=== PATIENT | female | born 1995 | race Caucasian/White ===

== ENCOUNTER → 2017-12-13 | Outpatient (CLI) | payer BC ==
[2017-12-13 13:58] LABS: BASO % 0.3 % (0.0-1.0); EOS # 0.1 10^3/uL (0.0-0.50); EOS % 1.1 % (0.0-3.0); HEMATOCRIT 39.3 % (36.0-47.0); HEMOGLOBIN 13.7 g/dl (12.0-16.0); IMMATURE GRANULOCYTE # 0.1 10^3/uL (0-0); IMMATURE GRANULOCYTE % 0.5 % (0-0); LYMPH % 17.2 % (24.0-44.0); MEAN CORPUSCULAR HEMOGLOBIN 31.2 pg (27.0-33.0); MEAN CORPUSCULAR HGB CONC 34.9 g/dl (32.0-36.5); MEAN CORPUSCULAR VOLUME 89.5 fl (80.0-96.0); MONO # 1.1 10^3/uL (0.0-0.8); MONO % 9.5 % (0.0-5.0); NEUTROPHILS # 8.3 10^3/uL (1.8-7.7); NEUTROPHILS % 71.4 % (36.0-66.0); PLATELET COUNT, AUTOMATED 328 10^3/uL (150-450); RED BLOOD COUNT 4.39 10^6/uL (4.00-5.40); RED CELL DISTRIBUTION WIDTH 12.4 % (11.5-14.5); WHITE BLOOD COUNT 11.6 10^3/uL (4.0-10.0)
[2017-12-13 14:57] LABS: RUBELLA IgG QUALITATIVE IMMUNE (IMMUNE)
[2017-12-13 15:05] LABS: HBsAg Prenatal NEGATIVE (NEGATIVE)
[2017-12-13 15:26] LABS: HIV 1&2 SCREEN CENTAUR NEGATIVE (NEGATIVE)
[2017-12-13 15:31] LABS: HEPATITIS C VIRUS ABY INDEX 3.5 INDEX (<0.8)
[2017-12-13 16:16] LABS: CHLAMYDIA DNA AMPLIFICATION NEGATIVE (NEGATIVE); GC DNA AMPLIFICATION NEGATIVE (NEGATIVE)
[2017-12-16 08:07] LABS: HCV RNA NAA QUALITATIVE Negative (Negative)
== END ==
LOC: M SMT 11:00
DX: Z34.81 Encounter for supervision of other normal pregnancy, first trimester (principal)
CPT/HCPCS: 86762

== ENCOUNTER → 2018-02-27 | Outpatient (CLI) | payer BC, OTHER | LOC: M RAD 09:58 | DX: Z34.82 Encounter for supervision of other normal pregnancy, second trimester (principal); Z3A.19 19 weeks gestation of pregnancy | CPT/HCPCS: 76811 ==

== ENCOUNTER → 2018-05-22 | Outpatient (CLI) | payer BC, OTHER ==
[2018-05-25 09:05] LABS: HERPES ZOSTER, VARICELLA IgM <0.91 index (0.00-0.90)
[2018-05-25 09:05] LABS: HERPES ZOSTER, VARICELLA IgG 1400 index (Immune >165)
== END ==
LOC: M LAB 19:50
DX: Z34.83 Encounter for supervision of other normal pregnancy, third trimester (principal); Z3A.00 Weeks of gestation of pregnancy not specified
CPT/HCPCS: 86787

== ENCOUNTER → 2018-06-26 | Outpatient (REF) | payer OTHER ==
[2018-06-26 14:32] LABS: TOTAL PROTEIN,RANDOM URINE < 5.0 MG/DL (0.0-12.0)
[2018-06-26 14:32] LABS: CREATININE,RANDOM URINE < 13.0 MG/DL
== END ==
LOC: M LAB REF 13:06
DX: Z34.83 Encounter for supervision of other normal pregnancy, third trimester (principal); Z36.89 Encounter for other specified antenatal screening
CPT/HCPCS: 82570

== ENCOUNTER 2018-07-16 14:42 | Inpatient (IN) | payer BC, OTHER ==
[2018-07-16 16:18] LABS: HEMATOCRIT 37.3 % (36.0-47.0); HEMOGLOBIN 13.2 g/dl (12.0-15.5); MEAN CORPUSCULAR HEMOGLOBIN 31.9 pg (27.0-33.0); MEAN CORPUSCULAR HGB CONC 35.4 g/dl (32.0-36.5); MEAN CORPUSCULAR VOLUME 90.1 fl (80.0-96.0); PLATELET COUNT, AUTOMATED 256 10^3/uL (150-450); RED BLOOD COUNT 4.14 10^6/uL (4.00-5.40); RED CELL DISTRIBUTION WIDTH 12.7 % (11.5-14.5); WHITE BLOOD COUNT 12.8 10^3/uL (4.0-10.0)
[2018-07-16] MEDS: miSOPROStol 50 MCG 1/2 TAB (S0191) PO (16:20)
[2018-07-16 16:43] LABS: ALT/SGPT 24 U/L (12-78); AST/SGOT 24 U/L (7-37); BILIRUBIN,TOTAL 0.2 MG/DL (0.2-1.0); CREATININE FOR GFR 0.56 MG/DL (0.55-1.30); GLOMERULAR FILTRATION RATE > 60.0 (>60); LDH LACTATE DEHYDROGENASE 230 U/L (84-246); URIC ACID 4.1 MG/DL (2.6-6.0)
[2018-07-16] MEDS ORDERED: FENTANYL 2MCG/ML ROPIVACAINE 0.2% IN 0.9% NACL 200ML IVBAG As Ordered (22:52)
[2018-07-16] MEDS ORDERED: LACTATED RINGER'S 1000 ML IV (23:45)
[2018-07-16] MEDS ORDERED: FENTANYL/ROPIVACAINE/NACL BAG 200 ML EPIDURAL (23:45)
[2018-07-16] MEDS ORDERED: ONDANSETRON 4MG/2ML VIAL (J2405) IV (23:45)
[2018-07-16] MEDS ORDERED: EPIDURAL COMMENT XX (23:45)
[2018-07-16] MEDS ORDERED: REFRIGERATOR IV KEYS XX (23:45)
[2018-07-16] MEDS ORDERED: NALOXONE INJ 0.4 MG/1 ML VIAL (J2310) IV (23:45)
[2018-07-16] MEDS ORDERED: diphenhydrAMINE INJ 50MG/ML VIAL (J1200) IV (23:45)
[2018-07-16] MEDS ORDERED: EPIDURAL/PCA KEYS XX (23:45)
[2018-07-17] MEDS: ePHEDrine SULFATE 25 MG/5 ML(5MG/ML) SYRINGE IV (01:28)
[2018-07-17] MEDS: OXYTOCIN DRIP 30 UNITS in APPROPRIATE DILUENT 1 EA IV ×2 (01:33→03:59)
[2018-07-17] MEDS ORDERED: RHOGAM 300 MCG (1500 IU) INJ (J2790) IM (04:00)
[2018-07-17] MEDS ORDERED: PROMETHAZINE 25 MG TAB PO (04:00)
[2018-07-17] MEDS ORDERED: MOM 30ML SUSPENSION UDC PO (04:00)
[2018-07-17] MEDS ORDERED: ONDANSETRON 4MG/2ML VIAL (J2405) IV (04:00)
[2018-07-17] MEDS ORDERED: DIBUCAINE 1% OINTMENT 30GM TOP (04:00)
[2018-07-17] MEDS ORDERED: ANUSOL HC CREAM 30GM TOP (04:00)
[2018-07-17] MEDS ORDERED: ACETAMINOPHEN 500 MG TAB PO (04:00)
[2018-07-17] MEDS ORDERED: MEASLES,MUMPS,RUBELLA VACCINE INJ (MMR-II) (90707) SC (04:00)
[2018-07-17] MEDS ORDERED: METHYLERGONOVINE MALEATE 0.2 MG TAB PO (04:00)
[2018-07-17] MEDS: PRENATAL VITAMINS CHEWABLE TABLET PO (08:46)
[2018-07-17] MEDS: DOCUSATE SODIUM 100 MG CAP PO (20:50)
[2018-07-17] MEDS: IBUPROFEN 800 MG TAB PO (22:06)
[2018-07-18] MEDS: PRENATAL VITAMINS CHEWABLE TABLET PO (09:48)
[2018-07-18] MEDS: DOCUSATE SODIUM 100 MG CAP PO (21:18)
[2018-07-19] MEDS: PRENATAL VITAMINS CHEWABLE TABLET PO (08:56)
== END 2018-07-19 11:00 | disposition home or self-care (01) | DRG 560 ==
LOC: M LDI 14:42 → M OBS 07-17 05:52
PROC: 10E0XZZ Delivery of Products of Conception, External Approach (ICD-10-PCS; principal; 2018-07-17)
DX: O42.02 Full-term premature rupture of membranes, onset of labor within 24 hours of rupture (principal); Z37.0 Single live birth; Z3A.39 39 weeks gestation of pregnancy

== ENCOUNTER → 2019-08-21 | Outpatient (CLI) | payer BC, OTHER ==
[~2019-08-21] MED LIST: IBUP-1114 PO; MAPA500T2 PO; PREN1TAB11 PO
[2019-08-21 17:25] LABS: BASO % 0.3 % (0.0-1.0); EOS # 0.2 10^3/uL (0.0-0.5); HEMATOCRIT 38.7 % (36.0-47.0); HEMOGLOBIN 13.1 g/dl (12.0-15.5); LYMPH # 2.4 10^3/uL (1.5-5.0); LYMPH % 22.3 % (24.0-44.0); MEAN CORPUSCULAR HEMOGLOBIN 30.3 pg (27.0-33.0); MEAN CORPUSCULAR HGB CONC 33.9 g/dl (32.0-36.5); MEAN CORPUSCULAR VOLUME 89.6 fl (80.0-96.0); MONO # 0.9 10^3/uL (0.0-0.8); MONO % 8.9 % (0.0-5.0); NEUTROPHILS % 66.1 % (36.0-66.0); PLATELET COUNT, AUTOMATED 360 10^3/uL (150-450); RED BLOOD COUNT 4.32 10^6/uL (4.00-5.40); WHITE BLOOD COUNT 10.5 10^3/uL (4.0-10.0)
[2019-08-24 10:58] LABS: HEPATITIS C VIRUS ABY INDEX 0.1 INDEX (<0.8); HIV 1&2 SCREEN CENTAUR NEGATIVE (NEGATIVE); RUBELLA IgG QUALITATIVE IMMUNE (IMMUNE)
[2019-08-24 14:40] LABS: CHLAMYDIA DNA AMPLIFICATION NEGATIVE (NEGATIVE); GC DNA AMPLIFICATION NEGATIVE (NEGATIVE)
== END ==
LOC: M SMT 15:24
PROVIDERS: ATTEND Advanced Practice Midwife
DX: Z34.80 Encounter for supervision of other normal pregnancy, unspecified trimester (principal)

== ENCOUNTER → 2019-11-12 | Outpatient (CLI) | payer BC, OTHER ==
--- NOTE | 2019-11-12 17:06 | REP ---
Clinical: Anatomical evaluation. Comparison: None. Findings: Examination demonstrates a single live intrauterine in variable presentation. motion is identified by technologist. Placenta is noted anterior and grade zero without evidence for placenta previa or abruption. Amniotic fluid volume is normal. Cervix measures 4.6 cm in length and appears closed. Nuchal cord cannot be excluded. Gestational age by LMP 20 weeks 0 days with KAREY 03/31/2020 . Gestational age by current measurements 21 weeks 2-day with KAREY 03/22/2020 . FHR equals 157 beats per minute. BPD 4.9 cm 20 weeks 5 days HC 18.1 cm 20 weeks 3 days AC 17.1 cm 22 weeks 1 day FL 3.6 cm 21 weeks 3 days HL 3.5 cm 22 weeks 0 days HC/AC ratio 1.06 Estimated weight 438 grams (greater than 97 percentile based on age by LMP) the Anatomical assessment demonstrates normal structures including cranium, choroid plexus, cavum, cerebellum/posterior fossa, facial features, lungs, diaphragm, stomach, cord insertion/three-vessel cord, kidneys/bladder, spine, and extremities. Impression: 1. Single live intrauterine in variable presentation. Estimated weight is greater than expected based on age by LMP and correlation is recommended. 2. Limited evaluation of the heart and cardiac ventricular outflow tracts may warrant reevaluation and follow-up. Electronically Signed by Willie Cagle MD 11/12/2019 04:57 P
== END ==
LOC: M RAD 15:46
PROVIDERS: ATTEND Obstetrics & Gynecology
DX: Z34.82 Encounter for supervision of other normal pregnancy, second trimester (principal)

== ENCOUNTER → 2019-12-01 | Outpatient (CLI) | payer BC, OTHER ==
--- NOTE | 2019-12-02 03:34 | REP ---
Clinical: Anatomical evaluation. Comparison: 11/12/2019 . Findings: Examination demonstrates a single live intrauterine in cephalic presentation. motion is identified by technologist. Placenta is noted anterior and grade one without evidence for placenta previa or abruption. Amniotic fluid volume is normal. Cervix measures 4.4 cm in length and appears closed. No evidence for nuchal cord. Gestational age by LMP 22 weeks 5 days with KAREY 03/31/2020 . Gestational age by current measurements 23 weeks 3 days with KAREY 03/26/2020 . FHR equals 144 beats per minute. Estimated weight 599 grams ( 70th percentile). Anatomical assessment demonstrates normal structures including cranium, choroid plexus, cavum, cerebellum/posterior fossa, facial features, lungs, four-chamber heart/ventricular outflow tracts, diaphragm, stomach, cord insertion/three-vessel cord, kidneys/bladder, spine, and extremities. Echogenic focus again noted on the left cardiac ventricle likely prominent chordae tendineae. Impression: Single live intrauterine in cephalic presentation demonstrating appropriate interval growth. Anatomical assessment is complete and relatively normal as described above. Electronically Signed by Willie Cagle MD 12/02/2019 03:25 A
== END ==
LOC: M RAD 15:34
PROVIDERS: ATTEND Advanced Practice Midwife
DX: Z34.92 Encounter for supervision of normal pregnancy, unspecified, second trimester (principal)

== ENCOUNTER → 2020-01-19 | Outpatient (CLI) | payer BC, OTHER ==
--- NOTE | 2020-01-20 08:08 | REP ---
Clinical: Growth evaluation. Comparison: 12/01/2019 . Findings: Examination demonstrates a single live intrauterine in cephalic presentation. motion is identified by technologist. Placenta is noted anterior and grade I without evidence for placenta previa or abruption. Amniotic fluid volume is normal. Cervix measures 4.8 cm in length and appears closed. Nuchal cord noted. Gestational age by LMP 29 weeks 5 days with KAREY 03/31/2020 . Gestational age by first ultrasound and current measurements 31 weeks 0 day with KAREY 03/22/2020 . FHR equals 136 beats per minute. BPD 7.9 cm 31 weeks 5 days HC 29.0 cm 32 weeks 0 days AC 27.8 cm 31 weeks 6-day FL 5.7 cm 29 weeks 5-day HL 5.1 cm 29 weeks 4 days HC/AC ratio 1.04 Estimated weight 1780 grams (77 percentile). Amniotic fluid index: 11.8 cm Umbilical cord SD ratio: 2.82 Impression: 1. Single live intrauterine in cephalic presentation demonstrating appropriate interval growth. 2. Nuchal cord noted. Electronically Signed by Willie Cagle MD 01/20/2020 08:00 A
== END ==
LOC: M RAD 15:47
PROVIDERS: ATTEND Advanced Practice Midwife
DX: O26.849 Uterine size-date discrepancy, unspecified trimester (principal); Z3A.29 29 weeks gestation of pregnancy

== ENCOUNTER → 2020-03-07 | Outpatient (REF) | payer OTHER | LOC: M SFHCWAGY 16:31 | PROVIDERS: ATTEND Obstetrics & Gynecology | DX: Z3A.36 36 weeks gestation of pregnancy (principal) ==

== ENCOUNTER 2020-03-29 03:45 | Inpatient (IN) | payer BC, OTHER ==
[2020-03-29] VITALS (32 sets, daily range): BP systolic 86–147; BP diastolic 50–84
[~2020-03-29] VITALS: Ht 165.1 cm; Wt 90.1 kg
[2020-03-29] MEDS ORDERED: LR 1,000 ML IV SCH (04:27)
[2020-03-29] MEDS ORDERED: LACTATED RINGER'S 1000 ML IV STA (04:27)
[2020-03-29] MEDS ORDERED: ONDANSETRON 4MG/2ML VIAL IV ONE (04:30)
[2020-03-29 04:57] LABS: HEMATOCRIT 37.2 % (36.0-47.0); HEMOGLOBIN 13.2 g/dl (12.0-15.5); MEAN CORPUSCULAR HEMOGLOBIN 31.6 pg (27.0-33.0); MEAN CORPUSCULAR HGB CONC 35.5 g/dl (32.0-36.5); PLATELET COUNT, AUTOMATED 237 10^3/uL (150-450); RED BLOOD COUNT 4.18 10^6/uL (4.00-5.40); WHITE BLOOD COUNT 19.9 10^3/uL (4.0-10.0)
[2020-03-29] MEDS ORDERED: FENTANYL 2MCG/ML ROPIVACAINE 0.2% IN 0.9% NACL 100ML IVBAG As Ordered ONE (05:05)
[2020-03-29] MEDS ORDERED: EPIDURAL/PCA KEYS XX PRN (06:30)
[2020-03-29] MEDS ORDERED: ONDANSETRON 4MG/2ML VIAL IV PRN (06:30)
[2020-03-29] MEDS ORDERED: diphenhydrAMINE 50MG/ML VIAL (J1200) IV PRN (06:30)
[2020-03-29] MEDS ORDERED: NALOXONE INJ 0.4MG/1ML VIAL (J2310 PER 1MG) IV PRN (06:30)
[2020-03-29] MEDS ORDERED: REFRIGERATOR IV KEYS XX PRN (06:30)
[2020-03-29] MEDS ORDERED: LACTATED RINGER'S 1000 ML IV PRN (06:30)
[2020-03-29] MEDS ORDERED: EPIDURAL COMMENT XX SCH (06:30)
[2020-03-29] MEDS ORDERED: FENTANYL/ROPIVACAINE/NACL BAG 100 ML EPIDURAL SCH (06:30)
--- NOTE | 2020-03-29 06:55 | HPEPDOC ---
Obstetrical History & Physical General Date of Admission March 29, 2020 at 04:24 Primary Care Physician: ESTEPHANIA GOLDSMITH CNM History of Present Illness Patient is a 25-year-old female who is a at 39.5 weeks gestation with an KAREY of 03/31/20 based off of her LMP and consistent with her first trimester ultrasound. She initiated care with [facility] in her first trimester. Her has essentially been uncomplicated beyond having a few slightly elevated BPs at her last 2 visits consistent with GHTN. She presented to L&D in active labor. She reports painful, regular contractions, bloody show, and active movement. She denied leaking of fluid but about 1 hour after arriving to hospital she experienced SROM of clear fluids. Chief Complaint: Active Labor Information Provided By: Patient Age: 25 : 2 Term: 1 Pre-term: 0 Abortions: 0 Livin Care Care: Good Care Dating Final EDC: March 31, 2020 Final EDC by: LMP LMP: Jun 25, 2019 EGA at Admission: 39.5 Antepartum Course Height (inches): 65 Pre- weight (lbs.): 142 Admission Weight (lbs.): 198 Change in Weight (lbs.): 56 Past Medical History Past Obstetrical History : Date of Delivery: Jul 27, 2018 Gestation: 39 Type of Delivery: Spontaneous Vaginal Del. Sex of : Male (weight: 7 lbs 7 oz.) Complications: No MESH MAN History: No pertinent history Past Medical History Medical History no current conditions Surgical History: Tonsilectomy (with adenoidectomy) Family History Significant Family History: Heart disease, Hypertension, Vascular disease Social History Marital Status: Family situation: Spouse/partner home Psychosocial History: No pertinent psych hx * Smoker: non-smoker Alcohol: Denies Drugs: denies Abuse Violence Screening Have you been hit/kicked/slapp: No Have you been sexually assault: No Allergies Coded Allergies: Sulfa (Sulfonamide Antibiotics) (Verified Allergy, Unknown, 03/29/20) Medications Scheduled Vit No.124/Iron/Folic ( Vitamin Tablet) 1 Tab Tab, 1 TAB PO DAILY Physical Examination Physical Examination GENERAL: Alert and oriented times three. BREAST: . ABDOMEN: Gravid and non-tender to touch. FETUS: Is vertex (VTX) by sterile vaginal examination (SVE), fetus is vertex (VTX) by Jhonatan. HEART RATE: Regular rate and rhythm. LUNGS: Clear to auscultation (CTA). EXTREMITIES: No edema. No clonus. Deep tendon reflexes (DTRs) + . Vital Signs/I&O Vital Signs Date Time Temp Pulse Resp B/P (MAP) Pulse Ox O2 Delivery O2 Flow Rate FiO2 03/29/20 06:32 97.7 86 100/58 (72) Laboratory Data 24H LABS Laboratory Tests 2 03/29/20 04:35: Serology Scanned Report Hepatitis B Testing 03/29/20 04:51: Nucleated Red Blood Cells % (auto) 0.0 CBC/BMP Laboratory Tests 03/29/20 04:51 Urine Culture: No Growth Pertinent Laboratoy Data Blood Type: O+ RBC Antibody Screen: Negative HIV: Negative Hepatitis B: Negative Hepatitis C: Negative Rapid Plasma Reagin: Nonreactive Rubella: Immune Chlamydia/Gonorrhea: Negative Group B Streptococcus: Negative Glucose Tolerance Test: 130 Vaginal Examination Dilation: 3 cm Effacement: 90% Station: -2 Cervical Consistency: Soft Cervical Position: Anterior Presentation: Cephalic presentation Position: Vertex (occiput) Assessment Heart Rate (FHR): 130 Variability: Moderate Accelerations: Positive Decelerations: None Tocometer Contractions: Yes Frequency: regular Multi-drug resistant Organism: No history of MDRO Assessment/Plan Assessment IUP at 39.5 weeks gestation GBS negative Category I FHR tracing Active labor Plan Admit to L&D. OOB ad joseph until epidural. Diet: clears. Group B Streptococcus (GBS) negative. Labs and intravenous (IV) per unit protocol. Anesthesia consult per patient's request. Lactated Ringers (LR): Bolus 800 mL, then at 125 mL/hr. Anticipate cervical change and . C-S as appropriate. ESTEPHANIA GOLDSMITH CNM March 29, 2020 06:55
[2020-03-29] MEDS: ePHEDrine SULFATE 25 MG/5 ML(5MG/ML) SYRINGE IV PRN ×3 (07:37→07:50)
[2020-03-29] MEDS ORDERED: OXYTOCIN 30 UNITS IN 0.9% NaCl 500ML IV BAG (J2590) As Ordered ONE (09:34)
[2020-03-29] MEDS ORDERED: OXYTOCIN DRIP 30 UNITS in IV 1 EA IV SCH (10:26)
[2020-03-29] MEDS ORDERED: DIBUCAINE 1% OINTMENT 30GM TOP PRN (10:30)
[2020-03-29] MEDS ORDERED: IBUPROFEN 800 MG TAB PO PRN (10:30)
[2020-03-29] MEDS ORDERED: RHOGAM 300 MCG (1500 IU) INJ (J2790) IM SCH (10:30)
[2020-03-29] MEDS ORDERED: MEASLES,MUMPS,RUBELLA VACCINE INJ (MMR-II) (90707) SC SCH (10:30)
[2020-03-29] MEDS ORDERED: METHYLERGONOVINE MALEATE 0.2 MG TAB PO PRN (10:30)
[2020-03-29] MEDS ORDERED: ACETAMINOPHEN TAB 650MG DOSE (2X325MG) PO PRN (10:30)
[2020-03-29] MEDS ORDERED: DOCUSATE SODIUM 100MG CAPSULE PO PRN (10:30)
[2020-03-29] MEDS ORDERED: ACETAMINOPHEN 500 MG TAB PO PRN (10:30)
--- NOTE | 2020-03-29 10:39 | DNPDOC ---
[facility] Delivery Note Delivery Note DATE OF DELIVERY: 03/29/2020 PREDELIVERY DIAGNOSIS: 39-3/7 weeks' gestation and labor. POST DELIVERY DIAGNOSIS: Delivered. PROCEDURE: Spontaneous vaginal delivery. OPERATIONS SUPPORT REPRESENTATIVE: Dr. Zonia Holly DO, PGY 3 SCRUB NURSE: Dr. Afsaneh Monahan M.D. ANESTHESIA: Epidural. ESTIMATED BLOOD LOSS: 100 mL. FINDINGS: 8 pound 0 ounce male infant, Score 9/9, left compound hand. DELIVERY SUMMARY: The active phase and second stage of labor progressed in normal fashion with epidural anesthesia. Patient did not receive Pitocin labor augmentation. GBS negative. Cat I FHR throughout labor. The head delivered straight occiput anterior and restituted right occiput transverse. A left compound hand was noted. The anterior shoulder delivered with gentle downward guidance and the remainder of the body delivered with ease. Cord clamping was delayed until pulsations ceased. After doubly clamping the cord, the FOB cut the umbilical cord under my direct supervision. The was placed on the mother's chest for immediate bonding. [place] data: Apgars 9 and 9. weight 3640 grams 8 pounds, 0 ounces. Time of delivery: 1002. Sex: Male. Name: Henry The third stage of labor was actively managed with a bolus of IV Pitocin (30 units in 500 mL of normal saline). The placenta delivered completely intact with no missing cotyledons at 1014. A three-vessel cord with a central insertion was noted. After delivery of the placenta, the uterine fundus was approximately 1 cm below the umbilicus and firm. IV Pitocin was continued to maintain uterine tone. A normal, low level of uterine bleeding was noted. The cervix, vagina, vulva and perineum were inspected for lacerations. A left periurethral abrasion noted, for which no repair was required. Excellent hemostasis was noted. All sponges, needles, and instruments were accounted for per [employer] department protocol. GME ATTESTATION GME ATTESTATION My faculty preceptor for this patient encounter was physically present during the encounter and was fully available. All aspects of the patient interview, examination, medical decision making process, and medical care plan development were reviewed and approved by the faculty preceptor. The faculty preceptor is aware and concurs with the plan as stated in the body of this note and will attest to such by his/her cosignature. ZONIA HOLLY D.O. March 29, 2020 10:39
[2020-03-29] MEDS: IBUPROFEN 600MG TAB PO PRN (18:12)
[2020-03-30 02:10] VITALS: BP 119/62
[2020-03-30] MEDS: IBUPROFEN 600MG TAB PO PRN ×2 (02:11→11:08)
[2020-03-30 06:17] VITALS: BP 104/59
--- NOTE | 2020-03-30 08:12 | IPNPDOC ---
Progress Note Date of Service: March 30, 2020 Day#: 1 Progress Note SUBJECT: Doing well without complaints. Ambulating, voiding and pain is well-c ontrolled. Reports minimal lochia. +breast feeding OBJECTIVE: VITAL SIGNS: Within normal limits, afebrile. Alert and oriented times three. Abdomen: Fundus firm at U-2. Soft, NTTP. Ext: neg calf tenderness. ASSESSMENT: day #1 status post normal spontaneous vaginal delivery. Recovering in stable condition. PLAN: 1. Continue routine care 2. Discharge plans for tomorrow VS, I&O, 24H, Fishbone Vital Signs/I&O Vital Signs Date Time Temp Pulse Resp B/P (MAP) Pulse Ox O2 Delivery O2 Flow Rate FiO2 03/30/20 06:17 98.2 95 16 104/59 (74) 03/29/20 10:16 98 03/29/20 07:38 Room Air I&O- Last 24 Hours up to 6 AM 03/30/20 06:00 Intake Total 3878 ml Output Total 1350 ml Balance 2528 ml NIKKO DOMINGUEZ MD. March 30, 2020 08:12
[2020-03-30] MEDS ORDERED: PRENATAL VITAMINS CHEWABLE TABLET PO SCH (09:00)
[2020-03-30 10:00] VITALS: BP 104/60
== END 2020-03-30 15:45 | disposition home or self-care (01) | DRG 560 ==
LOC: M LDO 03:45 → M LDI 04:24 → M OBS 12:45
PROVIDERS: ADMIT Advanced Practice Midwife; ATTEND Advanced Practice Midwife
PROC: 10E0XZZ Delivery of Products of Conception, External Approach (ICD-10-PCS; principal; 2020-03-29)
DX: O32.6XX0 Maternal care for compound presentation, not applicable or unspecified (principal); Z37.0 Single live birth; Z3A.39 39 weeks gestation of pregnancy

== ENCOUNTER → 2020-07-19 | Outpatient (REF) | payer BC, OTHER | LOC: M SFHCWAGY 14:15 | PROVIDERS: ATTEND Nurse Practitioner Women's Health | DX: Z12.4 Encounter for screening for malignant neoplasm of cervix (principal) ==